=== PATIENT | female | born 1995 | race Caucasian/White ===

== ENCOUNTER 2016-09-06 15:59 | Emergency (ER) | payer OTHER ==
[~2016-09-06 15:59] MED LIST: ALBUTEROL17 GM INH; NO MEDICATIONS; PREDNISONE PO; PROMETHAZINE W118 M1 PO; ZITHROMAX PO
[2016-09-11] MEDS ORDERED: NO MEDICATIONS (13:56)
== END 2016-09-06 17:01 | disposition home or self-care (01) ==
LOC: SED 15:59
DX: O86.0 Infection of obstetric surgical wound (principal)
CPT/HCPCS: 99282

== ENCOUNTER 2016-09-11 14:33 | Emergency (ER) | payer OTHER | END 2016-09-11 14:35 | disposition home or self-care (01) | LOC: SED 14:33 | DX: G89.18 Other acute postprocedural pain (principal); F41.0 Panic disorder [episodic paroxysmal anxiety] | CPT/HCPCS: 99282 ==

== ENCOUNTER 2016-11-03 00:03 | Emergency (ER) | payer OTHER | END 2016-11-03 01:25 | disposition home or self-care (01) | LOC: SED 00:03 | DX: O86.0 Infection of obstetric surgical wound (principal); O99.345 Other mental disorders complicating the puerperium; F41.0 Panic disorder [episodic paroxysmal anxiety] | CPT/HCPCS: 99282 ==